=== PATIENT | male | born 1955 | race Caucasian/White ===

== ENCOUNTER 2016-10-22 03:13 | Emergency (ER) | payer MEDICARE | END 2016-10-22 03:46 | disposition home or self-care (01) | LOC: ER 03:13 | DX: M54.2 Cervicalgia (principal); H92.01 Otalgia, right ear; E78.00 Pure hypercholesterolemia, unspecified; E07.9 Disorder of thyroid, unspecified; Z79.899 Other long term (current) drug therapy | CPT/HCPCS: 99282; 99283 ==